=== PATIENT | female | born 1990 | race Caucasian/White ===

== ENCOUNTER 2016-12-04 16:00 | Inpatient (IN) | payer OTHER ==
[~2016-12-04] VITALS: Ht 168.9 cm; Wt 109.1 kg
[2016-12-04 16:51] VITALS: Ht 168.9 cm; Wt 109.1 kg
[2016-12-04] MEDS ORDERED: LIDOCAINE 1% (MPF) 30 ML INJ INJ PRN (17:00)
[2016-12-04] MEDS ORDERED: CARBOPROST 250 MCG INJ IM PRN (17:00)
[2016-12-04] MEDS ORDERED: IBUPROFEN 600 MG TAB PO PRN (17:00)
[2016-12-04] MEDS ORDERED: METHYLERGONOVINE 0.2 MG INJ IM PRN (17:00)
[2016-12-04] MEDS ORDERED: OXYTOCIN 30 UNITS/LR 500 ML IV PRN (17:00)
[2016-12-04] MEDS ORDERED: OXYTOCIN 30 UNITS/LR 500 ML IV SCH ×2 (17:00)
[2016-12-04] MEDS ORDERED: LACTATED RINGER'S 1,000 ML IV PRN (17:00)
[2016-12-04] MEDS ORDERED: BUTORPHANOL 2 MG INJ IV PRN (17:00)
[2016-12-04] MEDS ORDERED: MISOPROSTOL 200 MCG TAB PR PRN (17:00)
[2016-12-04] MEDS: LACTATED RINGER'S 1,000 ML IV SCH ×2 (17:16→23:39)
[2016-12-04 17:17] VITALS: BP 135/75; PULSE 94; RESP 18
[2016-12-04 17:34] LABS: ADD SCAN DIFF NO
[2016-12-04 17:36] LABS: BASOPHILS % 0.3 % (0.0-2.0); EOSINOPHILS # 0.1 10^3/ul (0.0-0.5); EOSINOPHILS % 0.9 % (0.0-7.0); HEMATOCRIT 40.3 % (37.0-47.0); LYMPHOCYTES # 1.6 10^3/ul (0.8-2.9); LYMPHOCYTES % 17.9 % (15.0-51.0); MEAN CORPUSCULAR HEMOGLOBIN 31.7 pg (29.0-33.0); MEAN CORPUSCULAR HGB CONC 34.7 g/dl (32.0-37.0); MEAN CORPUSCULAR VOLUME 91.4 fl (82.0-101.0); MONOCYTES % 10.7 % (0.0-11.0); NEUTROPHIL # 6.2 10^3/ul (1.6-7.5); NEUTROPHILS % 69.5 % (39.0-77.0); PLATELET COUNT 209 10^3/UL (140-415); RED BLOOD COUNT 4.41 10^6/ul (4.20-5.40); RED CELL DISTRIBUTION WIDTH 12.4 % (11.5-14.5); WHITE BLOOD COUNT 8.9 10^3/ul (4.8-10.8)
[2016-12-04 17:45] LABS: INR 0.85; PARTIAL THROMBOPLASTIN TIME 27.1 Sec (25.0-35.0); PROTIME 11.6 Sec (12.2-14.2); PT RATIO 0.9
[2016-12-04] MEDS ORDERED: DINOPROSTONE 10 MG VAG SUPP VAG ONE (18:00)
--- NOTE | 2016-12-04 18:06 | RADRPT ---
PROCEDURE: Limited OB ultrasound CLINICAL INDICATION: Unable to detect position TECHNIQUE: Sonographic evaluation to assess the placenta was performed. Transabdominal imaging of the gravid uterus was performed. COMPARISON: No prior exam is available for comparison. FINDINGS: There is a single live intrauterine with cardiac activity, with a heart rate o f 126 bpm. position is cephalic. The placenta is anterior and grade 1. There is no evidence of placental abruption or previa. IMPRESSION: Single live intrauterine gestation in cephalic presentation. RPTAT: [facility] .Juliocesar Brenner MD, Date Time Electronically viewed and signed by .Juliocesar Brenner MD, on 12/04/2016 18:06 .M/
--- NOTE | 2016-12-04 18:16 | HP ---
Date/Time of Note Date/Time of Note DATE: 12/04/16 TIME: 18:14 OB - History Hx of Present Free Text/Dictation pt here for induction for post dates pmh-non psh-none Care: Good Care Ultrasounds: Normal mid trimester US Obstetrical Complications: None Medical Complications: None Past Family/Social History * Past Medical, Surgical, Family and Obstetric Histories reviewed from chart. OB Admission Exam Vital Signs Vital Signs Vital Signs Date Time Temp Pulse Resp B/P Pulse Ox O2 Delivery O2 Flow Rate FiO2 12/04/16 17:17 98.5 94 18 135/75 Room Air Physical Exam HEENT: WNL Heart: Rhythm Normal Abdomen: WNL Extremities: Normal Reflexes: Normal Cervical Dilatation: None Effacement: 0% Station: -2 Membranes: Intact Accelerations: Accelerations Present Last 72 hours Lab Results CBC & BMP 12/04/16 17:10 OB Assessment/Plan Reason for admission: induction of labor Plan: Induction Other plan: cervidil induction GABRIEL WILDE MD December 04, 2016 18:15
[2016-12-05] MEDS: LACTATED RINGER'S 1,000 ML IV SCH ×2 (07:18→16:20)
[2016-12-05] MEDS ORDERED: DINOPROSTONE 10 MG VAG SUPP VAG ONE ×2 (09:45→23:00)
[2016-12-05] MEDS ORDERED: ACETAMINOPHEN 325 MG TAB PO PRN (10:40)
--- NOTE | 2016-12-05 20:55 | PN ---
Date/Time of Note Date/Time of Note DATE: 12/05/16 TIME: 20:45 OB Subjective Subjective Subjective post date ,on Cervidil induction currently on number 2 no cervical change ,will continue induction to achieve satisfactory response . EMMANUEL GUTHRIE MD December 05, 2016 20:55
[2016-12-06] MEDS: LACTATED RINGER'S 1,000 ML IV SCH ×3 (00:11→16:42)
[2016-12-06] MEDS: MISOPROSTOL 25 MCG CAPSULE PO SCH ×2 (16:02→20:13)
--- NOTE | 2016-12-06 17:17 | PN ---
Date/Time of Note Date/Time of Note DATE: 12/06/16 TIME: 17:12 OB Subjective Subjective Subjective Vital signs stable afebrile, currently patient on the third Cervidil no changes on cervical dilatation or effacement we will continue induction expecting cervical effacement and dilatation, within the next 12 hours, baby's condition satisfactory heart category 1 EMMANUEL GUTHRIE MD December 06, 2016 17:17
[2016-12-07] MEDS: MISOPROSTOL 25 MCG CAPSULE PO SCH ×2 (00:56→05:00)
[2016-12-07] MEDS: LACTATED RINGER'S 1,000 ML IV SCH ×4 (04:26→16:56)
[2016-12-07] MEDS ORDERED: ONDANSETRON 4 MG INJ IV STA (08:58)
[2016-12-07] MEDS ORDERED: MISOPROSTOL 200 MCG TAB PR PRN ×4 (09:00→17:00)
[2016-12-07] MEDS ORDERED: CLINDAMYCIN 900 MG/D5W (PMX) 50 ML IV SCH ×2 (09:00→17:00)
[2016-12-07] MEDS ORDERED: METHYLERGONOVINE 0.2 MG INJ IM PRN ×4 (09:00→17:00)
[2016-12-07] MEDS ORDERED: CITRIC ACID/SODIUM CITRATE 15 ML CUP PO ONE ×2 (09:00)
[2016-12-07] MEDS ORDERED: CARBOPROST 250 MCG INJ IM PRN ×4 (09:00→17:00)
[2016-12-07] MEDS ORDERED: OXYTOCIN 30 UNITS/LR 500 ML IV PRN ×4 (09:00→17:00)
[2016-12-07] MEDS ORDERED: METOCLOPRAMIDE 10 MG INJ ONE (09:23)
[2016-12-07] MEDS ORDERED: FENTAnyl 50 MCG/ML VIAL ONE (09:23)
[2016-12-07] MEDS ORDERED: morphine SULFATE/PF (10 MG/10 ML) INJ ONE (09:23)
[2016-12-07] MEDS ORDERED: KETOROLAC 30 MG INJ ONE (09:24)
[2016-12-07] MEDS ORDERED: OXYTOCIN 10 UNIT INJ ONE (09:24)
[2016-12-07] MEDS ORDERED: PHENYLephrine (100 MCG/ML) 5ML SYG ONE (09:24)
[2016-12-07 10:54] LABS: ADD SCAN DIFF NO
[2016-12-07 11:01] LABS: BASOPHILS % 0.4 % (0.0-2.0); EOSINOPHILS # 0.1 10^3/ul (0.0-0.5); EOSINOPHILS % 1.6 % (0.0-7.0); HEMATOCRIT 41.6 % (37.0-47.0); HEMOGLOBIN 14.3 g/dl (12.0-16.0); LYMPHOCYTES # 1.5 10^3/ul (0.8-2.9); LYMPHOCYTES % 18.4 % (15.0-51.0); MEAN CORPUSCULAR HEMOGLOBIN 31.7 pg (29.0-33.0); MEAN CORPUSCULAR HGB CONC 34.4 g/dl (32.0-37.0); MEAN CORPUSCULAR VOLUME 92.2 fl (82.0-101.0); MEAN PLATELET VOLUME 10.7 fl (7.4-10.4); MONOCYTE # 0.8 10^3/ul (0.3-0.9); MONOCYTES % 9.8 % (0.0-11.0); NEUTROPHIL # 5.8 10^3/ul (1.6-7.5); NEUTROPHILS % 69.1 % (39.0-77.0); PLATELET COUNT 168 10^3/UL (140-415); RED BLOOD COUNT 4.51 10^6/ul (4.20-5.40); RED CELL DISTRIBUTION WIDTH 12.7 % (11.5-14.5); WHITE BLOOD COUNT 8.4 10^3/ul (4.8-10.8)
[2016-12-07 11:20] LABS: INR 0.84; PROTIME 11.5 Sec (12.2-14.2); PT RATIO 0.9
[2016-12-07] MEDS ORDERED: DEXAMETHASONE 4 MG/ML 1 ML INJ ONE (13:28)
[2016-12-07] MEDS ORDERED: KETOROLAC 30 MG INJ IV PRN (15:30)
[2016-12-07] MEDS ORDERED: morphine 2 MG INJ IV PRN (15:30)
[2016-12-07] MEDS ORDERED: MIDAZOLAM 1 MG/ML 2 ML INJ IV PRN (15:30)
[2016-12-07] MEDS ORDERED: MEPERIDINE 25 MG INJ IV PRN (15:30)
[2016-12-07] MEDS ORDERED: hydrALAzine 20 MG INJ IV PRN (15:30)
[2016-12-07] MEDS ORDERED: HYDROmorphONE (0.2 MG/ML) 10ML SYG IV PRN ×3 (15:30)
[2016-12-07] MEDS ORDERED: EPHEDrine SULFATE 50 MG/5 ML SYG IV PRN (15:30)
[2016-12-07] MEDS ORDERED: LABETALOL HCL 20MG INJ IV PRN (15:30)
[2016-12-07] MEDS ORDERED: ZOLPIDEM 5 MG TAB PO PRN (15:30)
[2016-12-07] MEDS ORDERED: NALOXONE (0.4 MG/ML) INJ IV PRN (15:30)
[2016-12-07] MEDS ORDERED: DIPHENHYDRAMINE 50 MG INJ IV PRN ×2 (15:30)
[2016-12-07] MEDS ORDERED: HYDROmorphONE 1 MG/ML SYG IV PRN ×2 (15:30)
[2016-12-07] MEDS ORDERED: TRIMETHOBENZAMIDE 100 MG/ML VIAL IM PRN (15:30)
[2016-12-07] MEDS ORDERED: ONDANSETRON 4 MG INJ IV PRN ×2 (15:30)
[2016-12-07] MEDS ORDERED: FENTAnyl 50 MCG/ML VIAL IV PRN ×3 (15:30)
[2016-12-07] MEDS ORDERED: ACETAMINOPHEN/CODEINE #3 TAB PO PRN (17:00)
[2016-12-07] MEDS ORDERED: CEFAZOLIN 1 GM/50 ML (PMX) 50 ML IVPB SCH ×2 (17:00)
[2016-12-07] MEDS ORDERED: LANOLIN 7 GM TUBE TOP PRN (17:00)
[2016-12-07] MEDS ORDERED: OXYCODONE/ACETAMINOPHEN (5/325) TAB PO PRN ×2 (17:00)
[2016-12-07] MEDS ORDERED: OXYTOCIN 30 UNITS/LR 500 ML IV SCH (17:00)
--- NOTE | 2016-12-07 17:22 | OPR ---
DATE OF OPERATION: 12/07/2016 PREOPERATIVE DIAGNOSES: Intrauterine at 40 weeks. Three 3 days of induction and patient declined further trial of labor, requesting operative delivery by section. POSTOPERATIVE DIAGNOSES: Intrauterine at 40 weeks. Three 3 days of induction and patient declined further trial of labor, requesting operative delivery by section. OPERATION PERFORMED: Primary transverse low cervical section. SURGEON: Emmanuel Guthrie MD GARMENT MANUFACTURER: MCKENZIE KATE MD. ANESTHESIA: Spinal. ANESTHESIOLOGIST: Dr. Espinoza. FINDINGS: Live baby boy with the 8 and 9. Baby weighed 9 pounds 9 ounces, equal to 4325 gram s. DETAILS OF THE PROCEDURE: Under satisfactory spinal anesthesia, the patient was prepped and draped and placed in supine position, tilted to the left. Pfannenstiel incision was made, carried through the subcutaneous tissue. Bleeders brought under control with electrocautery. Fascia incised to the length of the incision. Rectus muscle divided in midline. Peritoneum exposed, entered through a t ransverse incision. Exploration of abdomen gravid uterus at term, normal appearing tubes and ovarie s. Bladder flap was developed. Transverse incision was made in the lower segment of the uterus. A mniotic sac ruptured. Clear amniotic fluid noted. Live baby boy was delivered from a transverse wa s delivered from occiput transverse position. After the delivery of the head, nasal oropharyngeal s uction was performed. Cord was clamped after resolved pulsation. Baby handed to the team for immediate attention. Placenta delivered manually intact. Uterine cavity cleaned with wet spong e and drainage established. Uterus closed in 2 layers using Monocryl #1 in continuous fashion. Per itoneal cavity irrigated with warm saline. Sponge, needle and instrument reported to be correct. A bdominal peritoneum closed with 2-0 chromic catgut continuously. Rectus muscle approximated with fe w interrupted 2-0 chromic catgut. Fascia closed with #1 PDS in a continuous fashion. Subcutaneous tissue approximated with interrupted 2-0 chromic catgut. Skin closed with rigoberto. ESTIMATED BLOOD LOSS: 700 mL. URINE BAG: Contained 200 mL of clear urine. Patient tolerated procedure well, transferred to recovery room in good condition. Dictated By: EMMANUEL GUTHRIE MD HF/NTS Conf#: [id number] DID#: [id number]
[2016-12-07] MEDS: OXYTOCIN 30 UNITS/LR 500 ML IV SCH ×4 (17:58→22:29)
[2016-12-07 18:00] VITALS: BP 123/74; PULSE 67; RESP 20
[2016-12-07] MEDS ORDERED: IBUPROFEN 600 MG TAB PO SCH (18:00)
[2016-12-07 18:50] LABS: INR 0.88; PROTIME 11.9 Sec (12.2-14.2); PT RATIO 0.9
[2016-12-07 18:51] LABS: PARTIAL THROMBOPLASTIN TIME 25.4 Sec (25.0-35.0)
[2016-12-07 20:00] VITALS: BP 127/80; PULSE 80; RESP 20
[2016-12-07] MEDS: SENNA/DOCUSATE NA (8.6MG/50MG) TAB PO SCH (21:30)
[2016-12-08 00:30] VITALS: BP 130/77; PULSE 93; RESP 20
[2016-12-08] MEDS: OXYTOCIN 30 UNITS/LR 500 ML IV SCH ×6 (00:56→08:56)
[2016-12-08] MEDS: LACTATED RINGER'S 1,000 ML IV SCH ×6 (00:56→15:07)
[2016-12-08 04:45] VITALS: BP 141/93; PULSE 95; RESP 20
[2016-12-08 08:09] LABS: ADD SCAN DIFF NO
[2016-12-08 08:10] VITALS: BP 120/69; PULSE 94; RESP 18
[2016-12-08 08:17] LABS: BASOPHILS % 0.2 % (0.0-2.0); EOSINOPHILS % 0.1 % (0.0-7.0); HEMATOCRIT 36.2 % (37.0-47.0); HEMOGLOBIN 12.3 g/dl (12.0-16.0); LYMPHOCYTES # 1.6 10^3/ul (0.8-2.9); LYMPHOCYTES % 10.6 % (15.0-51.0); MEAN CORPUSCULAR HEMOGLOBIN 31.2 pg (29.0-33.0); MEAN CORPUSCULAR VOLUME 91.9 fl (82.0-101.0); MEAN PLATELET VOLUME 10.7 fl (7.4-10.4); MONOCYTE # 1.3 10^3/ul (0.3-0.9); NEUTROPHIL # 11.8 10^3/ul (1.6-7.5); NEUTROPHILS % 79.4 % (39.0-77.0); PLATELET COUNT 180 10^3/UL (140-415); RED BLOOD COUNT 3.94 10^6/ul (4.20-5.40); RED CELL DISTRIBUTION WIDTH 12.8 % (11.5-14.5); WHITE BLOOD COUNT 14.8 10^3/ul (4.8-10.8)
[2016-12-08] MEDS: SENNA/DOCUSATE NA (8.6MG/50MG) TAB PO SCH ×2 (09:00→21:00)
[2016-12-08] MEDS ORDERED: CLINDAMYCIN 900 MG/D5W (PMX) 50 ML IVPB SCH (09:00)
[2016-12-08 12:00] VITALS: BP 119/66; PULSE 85; RESP 18
--- NOTE | 2016-12-08 12:16 | PN ---
Date/Time of Note Date/Time of Note DATE: 12/08/16 TIME: 12:14 OB Subjective Subjective Subjective Post day 1 Afebrile vital signs are stable abdomen soft mild distention bowel sounds present patient able to pass flatus lochia moderate extremities no ambulation encouraged Laboratory Tests Test 12/07/16 18:26 12/08/16 07:38 Prothrombin Time 11.9Sec Prothrombin Time Ratio 0.9 INR International Normalized Ratio 0.88 Activated Partial Thromboplast Time 25.4Sec White Blood Count 14.810^3/ul Red Blood Count 3.9410^6/ul Hemoglobin 12.3g/dl Hematocrit 36.2% Mean Corpuscular Volume 91.9fl Mean Corpuscular Hemoglobin 31.2pg Mean Corpuscular Hemoglobin Concent 34.0g/dl Red Cell Distribution Width 12.8% Platelet Count 59818^3/UL Mean Platelet Volume 10.7fl Neutrophils % 79.4% Lymphocytes % 10.6% Monocytes % 9.0% Eosinophils % 0.1% Basophils % 0.2% Nucleated Red Blood Cells % 0.0/100WBC Neutrophils # 11.810^3/ul Lymphocytes # 1.610^3/ul Monocytes # 1.310^3/ul Eosinophils # 0.010^3/ul Basophils # 0.010^3/ul Nucleated Red Blood Cells # 0.010^3/ul Current Medications Medications (Trade) Dose Ordered Sig/Bita Route PRN Reason Start Time Stop Time Status Last Admin Dose Admin Lactated Ringer's (Lr) 1,000 ml @ 125 mls/hr Q8H IV 12/04/16 16:46 12/07/16 17:01 DC 12/07/16 09:04 Butorphanol Tartrate (Stadol) 2 mg Q2H PRN IV PAIN 12/04/16 17:00 12/07/16 17:01 DC Lidocaine 30 ml 30 ml ONCE PRN INJ EPISIOTOMY/TEARING 12/04/16 17:00 12/07/16 17:02 DC Oxytocin/Lactated Ringer's 500 ml @ 125 mls/hr ONCE -MAY REPEAT X1 IV 12/04/16 17:00 12/07/16 17:01 DC 12/07/16 16:46 Oxytocin/Lactated Ringer's 500 ml @ 125 mls/hr ONCE IV 12/04/16 17:00 12/07/16 17:01 DC Ibuprofen 600 mg 600 mg ONCE PRN PO Mild Pain (Pain Score 1-3) 12/04/16 17:00 12/04/16 17:01 DC Lactated Ringer's 1,000 ml @ 2,000 mls/hr Q30M PRN IV PRE-EPIDURAL BOLUS 12/04/16 17:00 12/07/16 17:01 DC Oxytocin/Lactated Ringer's 500 ml @ 0 mls/hr ONCE PRN IV For Hemorrhage Management 12/04/16 17:00 12/07/16 17:01 DC Methylergonovine Maleate (Methergine) 0.2 mg ONCE PRN IM VAGINAL BLEEDING 12/04/16 17:00 12/07/16 17:02 DC Carboprost Tromethamine (Hemabate) 250 mcg ONCE PRN IM VAGINAL BLEEDING 12/04/16 17:00 12/07/16 17:01 DC Misoprostol (Cytotec) 1,000 mcg ONCE PRN SD VAGINAL BLEEDING 12/04/16 17:00 12/07/16 17:02 DC Dinoprostone (Cervidil Vaginal Supp) 10 mg ONCE ONCE VAG 12/04/16 18:00 12/04/16 18:01 DC 12/04/16 18:24 Dinoprostone (Cervidil Vaginal Supp) 10 mg ONCE ONCE VAG 12/05/16 09:45 12/05/16 09:46 DC 12/05/16 10:06 Acetaminophen (Tylenol Tab) 650 mg Q4H PRN PO PAIN AND OR ELEVATED TEMP 12/05/16 10:40 12/07/16 17:01 DC 12/05/16 10:54 Dinoprostone (Cervidil Vaginal Supp) 10 mg ONCE ONCE VAG 12/05/16 23:00 12/05/16 23:01 DC 12/06/16 01:10 Misoprostol 50 mcg 50 mcg Q4 PO 12/06/16 15:15 12/07/16 17:01 DC 12/06/16 20:13 Oxytocin/Lactated Ringer's 500 ml @ 0 mls/hr ONCE PRN IV For Hemorrhage Management 12/07/16 09:00 12/07/16 17:01 DC Methylergonovine Maleate (Methergine) 0.2 mg ONCE PRN IM VAGINAL BLEEDING 12/07/16 09:00 12/07/16 17:02 DC Carboprost Tromethamine (Hemabate) 250 mcg ONCE PRN IM VAGINAL BLEEDING 12/07/16 09:00 12/07/16 17:02 DC Misoprostol 1000 mcg 1,000 mcg ONCE PRN SD VAGINAL BLEEDING 12/07/16 09:00 12/07/16 17:02 DC Clindamycin HCl/ Dextrose (Cleocin 900 Mg/ D5W (Pmx)) 50 ml @ 50 mls/hr ONCE IV 12/07/16 09:00 12/07/16 18:49 Citric Acid/ Sodium Citrate (Bicitra) 15 ml ONCE ONCE PO 12/07/16 09:00 12/07/16 09:02 DC 12/07/16 12:30 Citric Acid/ Sodium Citrate (Bicitra) 15 ml ONCE ONCE PO 12/07/16 09:00 12/07/16 09:02 DC 12/07/16 12:31 Ondansetron HCl (Zofran Inj) 4 mg ONCE STAT IV 12/07/16 08:58 12/07/16 09:02 DC 12/07/16 12:30 Morphine Sulfate (Duramorph) 10 mg STK-MED ONCE .ROUTE 12/07/16 09:23 12/07/16 09:24 DC Fentanyl (Sublimaze) 100 mcg STK-MED ONCE .ROUTE 12/07/16 09:23 12/07/16 09:24 DC Metoclopramide HCl (Reglan) 10 mg STK-MED ONCE .ROUTE 12/07/16 09:23 12/07/16 09:24 DC Oxytocin (Oxytocin) 10 units STK-MED ONCE .ROUTE 12/07/16 09:24 12/07/16 09:25 DC Phenylephrine HCl (Paolo-Synephrine Inj Syg) 500 mcg STK-MED ONCE .ROUTE 12/07/16 09:24 12/07/16 09:25 DC Ketorolac Tromethamine (Toradol) 30 mg STK-MED ONCE .ROUTE 12/07/16 09:24 12/07/16 09:25 DC Dexamethasone (Decadron) 4 mg STK-MED ONCE .ROUTE 12/07/16 13:28 12/07/16 13:29 DC Hydromorphone HCl (Dilaudid (Rec)) 0.2 mg PACU ORDER PRN IV MILD PAIN LEVEL 1-3 12/07/16 15:30 12/07/16 17:01 DC Hydromorphone HCl (Dilaudid (Rec)) 0.4 mg PACU ORDER PRN IV MODERATE PAIN LEVEL 4-6 12/07/16 15:30 12/07/16 17:01 DC Hydromorphone HCl (Dilaudid (Rec)) 0.6 mg PACU ORDER PRN IV SEVERE PAIN LEVEL 7-10 12/07/16 15:30 12/07/16 17:01 DC Fentanyl (Sublimaze) 25 mcg PACU ORDER PRN IV MILD PAIN LEVEL 1-3 12/07/16 15:30 12/07/16 17:01 DC Fentanyl (Sublimaze) 50 mcg PACU ODER PRN IV MODERATE PAIN LEVEL 4-6 12/07/16 15:30 12/07/16 17:01 DC Fentanyl (Sublimaze) 75 mcg PACU ORDER PRN IV SEVERE PAIN LEVEL 7-10 12/07/16 15:30 12/07/16 17:01 DC Ondansetron HCl (Zofran Inj) 4 mg PACU ORDER PRN IV NAUSEA AND/OR VOMITING 12/07/16 15:30 12/07/16 17:01 DC Trimethobenzamide HCl (Tigan) 200 mg PACU ORDER PRN IM NAUSEA AND/OR VOMITING 12/07/16 15:30 12/07/16 17:01 DC Labetalol HCl (Labetalol) 5 mg PACU ORDER PRN IV HIGH BLOOD PRESSURE 12/07/16 15:30 12/07/16 17:01 DC Hydralazine HCl (Apresoline) 5 mg PACU ORDER PRN IV HIGH BLOOD PRESSURE 12/07/16 15:30 12/07/16 17:01 DC Ephedrine Sulfate 5 mg PACU ORDER PRN IV MAP LESS THAN 60 12/07/16 15:30 12/07/16 17:01 DC Meperidine HCl (Demerol) 25 mg PACU ORDER PRN IV POST-OP RIGORS 12/07/16 15:30 12/07/16 17:01 DC Diphenhydramine HCl (Benadryl) 25 mg PACU ORDER PRN IV PRURITUS 12/07/16 15:30 12/07/16 22:00 DC Midazolam HCl (Versed) 0.5 mg PACU ORDER PRN IV ANXIETY 12/07/16 15:30 12/07/16 17:01 DC Naloxone HCl (Narcan) 0.1 mg Q2M PRN IV FOR RESP RATE 8 OR LESS 12/07/16 15:30 12/08/16 15:29 Ketorolac Tromethamine (Toradol) 30 mg Q6H PRN IV PAIN 12/07/16 15:30 12/08/16 15:29 12/08/16 09:59 Morphine Sulfate (morphine) 3 mg Q2H PRN IV BREAKTHROUGH PAIN 12/07/16 15:30 12/08/16 15:29 Hydromorphone HCl (Dilaudid) 0.2 mg Q3H PRN IV PAIN LEVEL 1-5 12/07/16 15:30 12/08/16 15:29 Hydromorphone HCl (Dilaudid) 0.4 mg Q3H PRN IV PAIN LEVEL 6-10 12/07/16 15:30 12/08/16 15:29 Diphenhydramine HCl (Benadryl) 25 mg Q6H PRN IV ITCHING 12/07/16 15:30 12/08/16 15:29 Ondansetron HCl (Zofran Inj) 4 mg Q6H PRN IV NAUSEA AND/OR VOMITING 12/07/16 15:30 12/08/16 15:29 Zolpidem Tartrate (Ambien) 5 mg HS MAY REPEAT X 1 PRN PO INSOMNIA 12/07/16 15:30 12/08/16 15:29 Miscellaneous Information (* Miscellaneous Pharmacy Order) Duramorph: 0.2 mg Spi... GIVEN XX 12/07/16 15:30 Acetaminophen/ Codeine Phosphate (Tylenol No.3) 1 tab Q4H PRN PO PAIN LEVEL 4-6 12/07/16 17:00 Acetaminophen/ Codeine Phosphate (Tylenol No.3) 2 tab Q4H PRN PO PAIN LEVEL 7-10 12/07/16 17:00 Oxycodone/ Acetaminophen (Percocet (5/ 325)) 1 tab Q4H PRN PO PAIN LEVEL 4-6 12/07/16 17:00 Oxycodone/ Acetaminophen (Percocet (5/ 325)) 2 tab Q4H PRN PO PAIN LEVEL 7-10 12/07/16 17:00 Ibuprofen (Motrin) 600 mg Q6 PO 12/07/16 18:00 UNV Simethicone (Mylicon) 160 mg Q8H PRN PO DISTENSION/GAS/BLOATING 12/07/16 17:00 Senna/Docusate Sodium (Senokot-S) 1 tab BID PO 12/07/16 21:00 Lanolin (Zge-Z-Yjvtgw) 1 applic BEDSIDE MEDICATION PRN TOP BEDSIDE FOR PARUL TO NIPPLES 12/07/16 17:00 12/08/16 09:58 Diphtheria/ Tetanus/Acell Pertussis 0.5 ml 0.5 ml ONCE ONCE IM* 12/10/16 09:00 12/10/16 09:01 Oxytocin/Lactated Ringer's 500 ml @ 0 mls/hr ONCE PRN IV For Hemorrhage Management 12/07/16 17:00 Methylergonovine Maleate (Methergine) 0.2 mg ONCE PRN IM VAGINAL BLEEDING 12/07/16 17:00 Carboprost Tromethamine (Hemabate) 250 mcg ONCE PRN IM VAGINAL BLEEDING 12/07/16 17:00 Misoprostol 1000 mcg 1,000 mcg ONCE PRN SD VAGINAL BLEEDING 12/07/16 17:00 Cefazolin Sodium 50 ml @ 100 mls/hr ONCE IVPB 12/07/16 17:00 12/08/16 07:41 DC Oxytocin/Lactated Ringer's 500 ml @ 125 mls/hr Q4H IV 12/07/16 16:56 12/07/16 22:29 Lactated Ringer's 1,000 ml @ 125 mls/hr Q8H IV 12/07/16 16:56 12/08/16 10:50 Clindamycin HCl/ Dextrose 50 ml @ 50 mls/hr ONCE IV 12/07/16 17:00 Oxytocin/Lactated Ringer's 500 ml @ 125 mls/hr ONCE IV 12/07/16 17:00 Oxytocin/Lactated Ringer's 500 ml @ 0 mls/hr ONCE PRN IV For Hemorrhage Management 12/07/16 17:00 Methylergonovine Maleate (Methergine) 0.2 mg ONCE PRN IM VAGINAL BLEEDING 12/07/16 17:00 Carboprost Tromethamine (Hemabate) 250 mcg ONCE PRN IM VAGINAL BLEEDING 12/07/16 17:00 Misoprostol 1000 mcg 1,000 mcg ONCE PRN SD VAGINAL BLEEDING 12/07/16 17:00 Lactated Ringer's 1,000 ml @ 125 mls/hr Q8H IV 12/07/16 16:56 Oxytocin/Lactated Ringer's 500 ml @ 0 mls/hr ONCE PRN IV For Hemorrhage Management 12/07/16 17:00 Methylergonovine Maleate (Methergine) 0.2 mg ONCE PRN IM VAGINAL BLEEDING 12/07/16 17:00 Carboprost Tromethamine (Hemabate) 250 mcg ONCE PRN IM VAGINAL BLEEDING 12/07/16 17:00 Misoprostol 1000 mcg 1,000 mcg ONCE PRN SD VAGINAL BLEEDING 12/07/16 17:00 Cefazolin Sodium 50 ml @ 100 mls/hr ONCE IVPB 12/07/16 17:00 12/07/16 17:29 UNV Oxytocin/Lactated Ringer's 500 ml @ 125 mls/hr Q4H IV 12/07/16 16:56 Clindamycin HCl/ Dextrose (Cleocin 900 Mg/ D5W (Pmx)) 50 ml @ 50 mls/hr ONCE IVPB 12/08/16 09:00 12/08/16 09:59 EMMANUEL SANCHEZ MD December 08, 2016 12:16
[2016-12-08 16:00] VITALS: BP 122/60; PULSE 84; RESP 19
[2016-12-08 20:00] VITALS: BP 110/76; PULSE 98; RESP 20
[2016-12-09] MEDS: LACTATED RINGER'S 1,000 ML IV SCH ×3 (00:56→16:56)
[2016-12-09] MEDS: ACETAMINOPHEN/CODEINE #3 TAB PO PRN ×3 (03:56→17:53)
[2016-12-09 04:30] VITALS: BP 117/54; PULSE 81; RESP 20
[2016-12-09 08:00] VITALS: BP 117/57; PULSE 82; RESP 19
[2016-12-09] MEDS: SENNA/DOCUSATE NA (8.6MG/50MG) TAB PO SCH ×2 (09:00→20:54)
[2016-12-09 16:08] VITALS: BP 116/65; PULSE 96; RESP 18
[2016-12-09] MEDS ORDERED: NA PHOSPHATE/BIPHOS 133 ML ENEMA PR ONE (17:30)
--- NOTE | 2016-12-09 17:31 | PN ---
Date/Time of Note Date/Time of Note DATE: 12/09/16 TIME: 17:30 OB Subjective Subjective Subjective Post day 2 Afebrile abdomen soft bowel sounds. Incision dry lochia moderate extremity normal no bowel movement enema recommended EMMANUEL GUTHRIE MD December 09, 2016 17:31
[2016-12-09 20:15] VITALS: BP 117/58; PULSE 100; RESP 18
[2016-12-09] MEDS: NEOMYC/POLYMYX/BACIT 30 GM OINT TOP SCH ×2 (21:03→21:20)
[2016-12-10] MEDS: ACETAMINOPHEN/CODEINE #3 TAB PO PRN ×3 (01:39→14:17)
[2016-12-10 03:58] VITALS: BP 130/73; PULSE 102; RESP 18
[2016-12-10] MEDS ORDERED: MEASLES,MUMPS,RUBELLA VACCINE INJ SC* ONE (09:00)
[2016-12-10] MEDS: SENNA/DOCUSATE NA (8.6MG/50MG) TAB PO SCH (09:00)
[2016-12-10] MEDS ORDERED: DIPHTH/TET/ACEL PERTUSS (ADULT) 0.5 ML VIAL IM* ONE (09:00)
[2016-12-10 09:05] VITALS: BP 125/77; PULSE 110; RESP 20
[2016-12-10] MEDS: NEOMYC/POLYMYX/BACIT 30 GM OINT TOP SCH ×2 (09:25→09:26)
[2016-12-10] MEDS ORDERED: NA PHOSPHATE/BIPHOS 133 ML ENEMA PR SCH (09:30)
--- NOTE | 2016-12-10 13:48 | PD.PPDC ---
WIRE WORKER Discharge Instruction Condition Patient Condition: Good Diet Diet: Resume Regular Diet Activity/Restrictions Activity: Bedrest May be up to bathroom May be up for meals May Shower Restrictions: No Exercising No Lifting No Driving Minimize Walking Minimize Stair-climbing No Sexual Activity Nothing in the Vagina No [place] No Tampons, douche Wound/Drain Care Instructions Wound/Drain Care Instructions: Remove Steri Strips in 2 weeks Wash with soap and water Keep clean and dry Follow-up Follow-up with Physician: 3, Day/Days Return to clinic for [facility] MGR Instructions: Fever greater than 101 Chills Worsening abdominal pain Excessive Vaginal Bleeding OB Instructions: Breast Tenderness Depression Surgical Instructions: Incisional Drainage Incisional Redness JEIMY ROWAN MD December 10, 2016 13:48
--- NOTE | 2016-12-10 13:50 | DS ---
Date/Time of Note Date/Time of Note DATE: 12/10/16 TIME: 13:48 Obstetrical Discharge Record Final Diagnosis Final Diagnosis: Term delivered Section Section: Primary Primary Indication Failed induction. Complications Augmentation: Yes Induction: Yes Condition on Discharge Physical Assessment Last Vitals: T=98.3 BP 130/73 Voiding: Yes Bowel Movement: No Breast: Filling Fundus: Firm Abdomen and Incision: Clean dry and intact with rigoberto present and a very large pannus. Calf Tenderness: No Patient Condition: Good JEIMY ROWAN MD December 10, 2016 13:50
== END 2016-12-10 15:50 | disposition home or self-care (01) | DRG 766 ==
LOC: L-D 16:30 → PP1 12-07 17:15
PROVIDERS: ADMIT Obstetrics & Gynecology; ATTEND Obstetrics & Gynecology
PROC: 3E0P7GC Introduction of Other Therapeutic Substance into Female Reproductive, Via Natural or Artificial Opening (ICD-10-PCS; 2016-12-05)
PROC: 10D00Z1 Extraction of Products of Conception, Low, Open Approach (ICD-10-PCS; principal; 2016-12-07 14:00)
DX: O48.0 Post-term pregnancy (principal); E66.9 Obesity, unspecified; O99.214 Obesity complicating childbirth; Z68.38 Body mass index [BMI] 38.0-38.9, adult; Z3A.40 40 weeks gestation of pregnancy; Z37.0 Single live birth; Z87.891 Personal history of nicotine dependence
CPT/HCPCS: 76815; 85025; 85610; 85730; 86592; 86850; 86900; 86901; 87340; 90715; 99464; J1100; J1885; J2274; J2370; J2405; J2590; J2765; J3010; J7120

== ENCOUNTER 2016-12-14 18:08 | Inpatient (IN) | payer OTHER ==
[~2016-12-14] VITALS: Ht 170.2 cm; Wt 104.5 kg
[2016-12-14] MEDS ORDERED: SOD CHLORIDE 0.9% 1,000 ML IV STA (19:27)
[2016-12-14] MEDS ORDERED: CEFAZOLIN 1 GM/50 ML (PMX) 50 ML IVPB SCH (19:30)
--- NOTE | 2016-12-14 19:44 | ERA ---
ER Documentation Chief Complaint Date/Time DATE: 12/14/16 TIME: 19:[address] Chief [address] BY DR GUTHRIE FOR FEVER , DISCHARGE AT INCISION SITE , C SEC 11/07 HPI 26-year-old female status post 12/07/2016 resents the ED complaining of a several day history of intermittent fevers up to 101 with redness and purulent discharge from the wound. Denies abdominal pain, nausea, vomiting, diarrhea or constipation. Mild vaginal bleeding but no discharge or pelvic pain. Mild dysuria but no polyuria, hematuria or flank pain. No chest pain or palpitations. No shortness of breath or cough. Denies headache or neck pain. No leg pain or swelling. ROS All systems reviewed and are negative except as per history of present illness. Medications Home Meds No Active Prescriptions or Reported Meds Allergies Allergies: Coded Allergies: Penicillins (Verified Allergy, Unknown, 12/04/16) RASH ibuprofen (Verified Allergy, Unknown, 12/04/16) Gastritis PMhx/Soc Reviewed in chart. As per HPI. Medical and Surgical Hx: pt denies Medical Hx History of Surgery: Yes (csection) Anesthesia Reaction: No Hx Neurological Disorder: No Hx Respiratory Disorders: No Hx Cardiac Disorders: No Hx Psychiatric Problems: No Hx Miscellaneous Medical Probl: No Hx Alcohol Use: No Hx Substance Use: No Hx Tobacco Use: No FmHx Not relevant to presenting complaint Physical Exam Vitals Vital Signs Date Time Temp Pulse Resp B/P Pulse Ox O2 Delivery O2 Flow Rate FiO2 12/14/16 18:09 99.2 106 18 121/57 98 Physical Exam Const: Alert, mild distress. Head: Atraumatic Eyes: Normal Conjunctiva ENT: Normal External Ears, Nose and Mouth. Neck: Full range of motion..~ No meningismus. Resp: Clear to auscultation bilaterally Cardio: Regular rate and rhythm, no murmurs Abd: Soft, non tender, obese, nondistended. Pfannenstiel incision with diffuse surrounding erythema, tenderness and moderate purulent drainage from the medial portion of the wound. : Deferred Skin: No petechiae or rashes Back: No midline or flank tenderness Ext: No cyanosis, or edema. No calf swelling or tenderness Neur: Awake and alert Psych: Normal Mood and Affect Results 24 hrs Current Medications Medications (Trade) Dose Ordered Sig/Bita Route PRN Reason Start Time Stop Time Status Last Admin Dose Admin Sodium Chloride 1,000 ml @ 1,000 mls/hr Q1H STAT IV 12/14/16 19:27 12/14/16 20:26 Cefazolin Sodium (Ancef 1 Gm/50 ml (Pmx)) 50 ml @ 100 mls/hr ONCE IVPB 12/14/16 19:30 12/14/16 19:59 Procedures/MDM DOCUMENTS REVIEWED: ED nurse prior records MEDICAL DECISION MAKIN-year-old female status post 2016 resents the ED complaining of a several day history of intermittent fevers up to 101 with redness and purulent discharge from the wound. Patient presents with postoperative wound infection and fever. Doubt endometritis. Abdominal exam is benign without rebound, guarding or other signs of peritonitis. Antibiotics initiated pending cultures. Patient be admitted to [facility] for further evaluation and management. Counseled patient regarding diagnosis, diagnostic results and plan for admission. CALLS/CONSULTS: Time 19:30, Dr. Guthrie, Recommends admission to [facility]. PATIENT CARE TRANSITIONED: Time: 19:40, Dr. Guthrie. Departure Diagnosis: Primary Impression: Postoperative wound infection Qualified Code: T81.4XXA - Postoperative wound infection, initial encounter Additional Impression: Status post section Condition: Serious OK NINO MD December 14, 2016 19:44
[2016-12-14 19:57] LABS: ADD SCAN DIFF NO
[2016-12-14] MEDS ORDERED: ONDANSETRON 4 MG INJ IV PRN ×2 (20:00→22:00)
[2016-12-14] MEDS ORDERED: ACETAMINOPHEN 325 MG TAB PO PRN ×2 (20:00→22:00)
[2016-12-14 20:02] LABS: ADD UMIC YES; URINE BILIRUBIN (Dip) NEGATIVE (NEGATIVE); URINE BLOOD (Dip) 3+ (NEGATIVE); URINE COLOR LT. YELLOW (YELLOW); URINE GLUCOSE (Dip) NEGATIVE (NEGATIVE); URINE KETONES (Dip) NEGATIVE (NEGATIVE); URINE LEUKOCYTE ESTERASE (Dip) 2+ (NEGATIVE); URINE NITRITE (Dip) NEGATIVE (NEGATIVE); URINE TOTAL PROTEIN (Dip) TRACE (NEGATIVE); URINE UROBILINOGEN (Dip) 0.2 E.U./dL (0.1-1.0)
[2016-12-14 20:02] LABS: BASOPHILS % 0.4 % (0.0-2.0); EOSINOPHILS # 0.1 10^3/ul (0.0-0.5); HEMATOCRIT 36.7 % (37.0-47.0); HEMOGLOBIN 12.6 g/dl (12.0-16.0); LYMPHOCYTES # 0.8 10^3/ul (0.8-2.9); LYMPHOCYTES % 10.6 % (15.0-51.0); MEAN CORPUSCULAR HEMOGLOBIN 31.8 pg (29.0-33.0); MEAN CORPUSCULAR HGB CONC 34.3 g/dl (32.0-37.0); MEAN CORPUSCULAR VOLUME 92.7 fl (82.0-101.0); MEAN PLATELET VOLUME 9.1 fl (7.4-10.4); MONOCYTE # 0.5 10^3/ul (0.3-0.9); MONOCYTES % 7.4 % (0.0-11.0); NEUTROPHIL # 5.7 10^3/ul (1.6-7.5); NEUTROPHILS % 78.8 % (39.0-77.0); PLATELET COUNT 321 10^3/UL (140-415); RED BLOOD COUNT 3.96 10^6/ul (4.20-5.40); RED CELL DISTRIBUTION WIDTH 12.1 % (11.5-14.5); WHITE BLOOD COUNT 7.3 10^3/ul (4.8-10.8)
[2016-12-14 20:19] LABS: ALBUMIN 4.1 g/dl (3.3-4.9); ALBUMIN/GLOBULIN RATIO 1.24; BILIRUBIN,INDIRECT 0.5 mg/dl (0-1.1); BILIRUBIN,TOTAL 0.5 mg/dl (0.2-1.3); CALCIUM 8.8 mg/dl (8.4-10.2); CREATININE 0.59 mg/dl (0.44-1.00); POTASSIUM 3.5 mmol/L (3.5-5.1); TOTAL PROTEIN 7.4 g/dl (6.1-8.1)
[2016-12-14 20:23] LABS: BACTERIA,URINE MANY; SQUAMOUS EPITHELIAL CELL,UR FEW
[2016-12-14 21:44] VITALS: BP 118/58; RESP 18
[2016-12-14] MEDS: LACTATED RINGER'S 1,000 ML IV SCH (22:19)
[2016-12-14 22:35] VITALS: Ht 170.2 cm; Wt 104.5 kg
[2016-12-15] MEDS ORDERED: CEFAZOLIN 2 GM/50 ML (PMX) 50 ML IVPB SCH
--- NOTE | 2016-12-15 00:22 | HP ---
Date/Time of Note Date/Time of Note DATE: 12/14/16 TIME: 23:50 Assessment/Plan VTE Prophylaxis VTE Prophylaxis Intervention: ambulation Lines/Catheters IV Catheter Type (from Nrs): Peripheral IV Assessment/Plan Chief Complaint/Hosp Course POD #7, post section due to FTP Fever, wound drainage with evidence of wound cellulitis On Ancef Afebrile, no leukocytosis Problems: Assessment/Plan Wound culture obtained with gram stain and sensitivity in ED. follow up with results Obtain records from [facility] Urine culture to be sent with sensitivity IV abx, clindamycin and Gentamycin Expectant management Consider removing of the rigoberto from the infected side to assist for drainage tomrorrow. HPI/ROS Admit Date/Time Admit Date/Time December 14, 2016 at 19:44 Hx of Present Illness Patient was admitted by [facility] due to wound infection at 1 week post section. 26 years old s/p section due to FTP at 40 weeks and 4 days about one week ago, presented after she was seen at [facility] and was admitted due to fever and wound drainage started about 3 days ago. Patient's symptoms started with fever 101 and 101 about 3 days ago, Started to have purulent discharge from the right side of the wound. She states that she was admitted for 2 days at [facility] and was treated with 2 different IV antibiotics. Patient then decided to sign AMA and presented to [facility] in ED to be seen and complete her work up for wound infection with her primary Surgo[place] Dr. Ochoa. Patient currently reports drainage has been only from the right 1/3 side of the incision. Denies any abdominal pain. Started by ED on Ancef 1 grams every 4 hours. Records from [facility] unavailable. She is not currently breast feeding. Had some trouble in milk production and stopped breast feeding. Patient denies any complication during her course or any medical problems ROS Constitutional: no complaints Eyes: no complaints ENT: no complaints Respiratory: no complaints Cardiovascular: no complaints Gastrointestinal: other (drainage from the cersarean section inclsion, erythema ) Genitourinary: bleeding, other (Post Leukia ) Musculoskeletal: no complaints Skin: no complaints Neurologic: no complaints Endocrine: no complaints Lymphatic: no complaints PMH/Family/Social Past Medical History Medical History: no pertinent history Past Surgical History S/p section due to FTP Family History Significant Family History: no pertinent family hx Social History Alcohol Use: none Smoking Status: Former smoker Drug Use: none Exam/Review of Systems Vital Signs Vitals Vital Signs Date Time Temp Pulse Resp B/P Pulse Ox O2 Delivery O2 Flow Rate FiO2 12/14/16 21:44 98.3 84 18 118/58 98 Exam Constitutional: other (obese) Psych: no complaints Head: normocephalic Eyes: nl conjunctiva ENMT: nl external ears & nose Respiratory: clear to auscultation, normal air movement Cardiovascular: nl pulses, regular rate and rhythm Gastrointestinal: non-tender (there is Pfanenstiel incision related to recent section, drainage from the right side of the incision at 1/3 of the right corner, erythema arround the wound, Blenching. Drainage is purulent, Minimal tenderness in the area of the wound infection. ), soft Musculoskeletal: nl extremities to inspection Neurological: TRAVEL PT II-XII intact, nl mental status Skin: nl turgor Labs Result Diagram: 12/14/16194912/14/161949 Medications Medications Current Medications Cefazolin Sodium/ Dextrose (Ancef 2 Gm/50 ml (Pmx)) 50 ml @ 100 mls/hr Q6 IVPB Last administered on 12/14/16 23:04; Admin Dose 100 MLS/HR; Start 12/15/16 at 00:00 Ondansetron HCl (Zofran Inj) 4 mg Q6H PRN IV NAUSEA AND/OR VOMITING; Start at 22:00 Acetaminophen 650 mg 650 mg Q4H PRN PO PAIN AND OR ELEVATED TEMP; Start at 22:00 Lactated Ringer's (Lr) 1,000 ml @ 125 mls/hr Q8H IV Last administered on 22:19; Admin Dose 125 MLS/HR; Start 12/14/16 at 22:00 MCKENZIE KATE MD Dec 15, 2016 00:01
[2016-12-15] MEDS ORDERED: CLINDAMYCIN 900 MG INJ IV ONE (00:30)
[2016-12-15] MEDS ORDERED: CLINDAMYCIN 900 MG/D5W (PMX) 50 ML IVPB SCH (01:00)
[2016-12-15] MEDS ORDERED: GENTAMICIN 80 MG/NS (PMX) 50 ML IVPB SCH (01:00)
[2016-12-15 05:39] LABS: ADD SCAN DIFF NO
[2016-12-15 05:48] LABS: BASOPHILS % 0.3 % (0.0-2.0); EOSINOPHILS # 0.3 10^3/ul (0.0-0.5); EOSINOPHILS % 4.4 % (0.0-7.0); HEMATOCRIT 33.3 % (37.0-47.0); HEMOGLOBIN 11.2 g/dl (12.0-16.0); LYMPHOCYTES # 1.2 10^3/ul (0.8-2.9); LYMPHOCYTES % 21.6 % (15.0-51.0); MEAN CORPUSCULAR HGB CONC 33.6 g/dl (32.0-37.0); MEAN CORPUSCULAR VOLUME 92.2 fl (82.0-101.0); MEAN PLATELET VOLUME 9.3 fl (7.4-10.4); MONOCYTE # 0.7 10^3/ul (0.3-0.9); MONOCYTES % 12.5 % (0.0-11.0); NEUTROPHIL # 3.4 10^3/ul (1.6-7.5); NEUTROPHILS % 58.6 % (39.0-77.0); PLATELET COUNT 279 10^3/UL (140-415); RED BLOOD COUNT 3.61 10^6/ul (4.20-5.40); RED CELL DISTRIBUTION WIDTH 12.3 % (11.5-14.5); WHITE BLOOD COUNT 5.7 10^3/ul (4.8-10.8)
[2016-12-15] MEDS: LACTATED RINGER'S 1,000 ML IV SCH ×4 (06:00→21:40)
[2016-12-15 06:55] VITALS: BP 116/55; RESP 18
--- NOTE | 2016-12-15 10:46 | QN ---
Documentation Comment Afebrile vital signs are stable abdomen is soft redness and cellulitis on both sides of the incision has improved to the normal color and condition , approximately 1-1/2 inches on the right coronary of the incision still open, very minimal drainage which irrigated with hydrogen peroxide and Betadine and packed with half inch iodoform packing So far no growth on wound culture urine culture report not available Laboratory Tests Test 12/14/16 19:43 12/14/16 19:50 12/15/16 05:09 Urine Color LT. YELLOW Urine Clarity SLIGHTLY CLOUDY Urine pH 6.0 Urine Specific [place] 1.020 Urine Ketones NEGATIVE Urine Nitrite NEGATIVE Urine Bilirubin NEGATIVE Urine Urobilinogen 0.2 E.U./dL Urine Leukocyte Esterase 2+ Urine Microscopic RBC 5-10/HPF Urine Microscopic WBC 10-25/HPF Urine Squamous Epithelial Cells FEW Urine Bacteria MANY Urine Hemoglobin 3+ Urine Glucose NEGATIVE% Urine Total Protein TRACE White Blood Count 7.310^3/ul 5.710^3/ul Red Blood Count 3.9610^6/ul 3.6110^6/ul Hemoglobin 12.6g/dl 11.2g/dl Hematocrit 36.7% 33.3% Mean Corpuscular Volume 92.7fl 92.2fl Mean Corpuscular Hemoglobin 31.8pg 31.0pg Mean Corpuscular Hemoglobin Concent 34.3g/dl 33.6g/dl Red Cell Distribution Width 12.1% 12.3% Platelet Count 12162^3/UL 42612^3/UL Mean Platelet Volume 9.1fl 9.3fl Neutrophils % 78.8% 58.6% Lymphocytes % 10.6% 21.6% Monocytes % 7.4% 12.5% Eosinophils % 1.0% 4.4% Basophils % 0.4% 0.3% Nucleated Red Blood Cells % 0.0/100WBC 0.0/100WBC Neutrophils # 5.710^3/ul 3.410^3/ul Lymphocytes # 0.810^3/ul 1.210^3/ul Monocytes # 0.510^3/ul 0.710^3/ul Eosinophils # 0.110^3/ul 0.310^3/ul Basophils # 0.010^3/ul 0.010^3/ul Nucleated Red Blood Cells # 0.010^3/ul 0.010^3/ul Sodium Level 137mmol/L Potassium Level 3.5mmol/L Chloride Level 101mmol/L Carbon Dioxide Level 26mmol/L Anion Gap 14 Blood Urea Nitrogen 8mg/dl Creatinine 0.59mg/dl Glucose Level 108mg/dl Calcium Level 8.8mg/dl Total Bilirubin 0.5mg/dl Direct Bilirubin 0.00mg/dl Indirect Bilirubin 0.5mg/dl Aspartate Amino Transf (AST/SGOT) 22IU/L Alanine Aminotransferase (ALT/SGPT) 29IU/L Alkaline Phosphatase 93IU/L Total Protein 7.4g/dl Albumin 4.1g/dl Globulin 3.30g/dl Albumin/Globulin Ratio 1.24 Current Medications Medications (Trade) Dose Ordered Sig/Bita Route PRN Reason Start Time Stop Time Status Last Admin Dose Admin Sodium Chloride 1,000 ml @ 1,000 mls/hr Q1H STAT IV 12/14/16 19:27 12/14/16 20:26 DC 12/14/16 19:59 Cefazolin Sodium (Ancef 1 Gm/50 ml (Pmx)) 50 ml @ 100 mls/hr ONCE IVPB 12/14/16 19:30 12/14/16 19:59 DC 12/14/16 19:59 Ondansetron HCl (Zofran Inj) 4 mg BRIDGE ORDER PRN IV NAUSEA AND/OR VOMITING 12/14/16 20:00 12/15/16 19:59 Acetaminophen 650 mg 650 mg ER BRIDGE PRN PO MILD PAIN/FEVER 12/14/16 20:00 12/15/16 19:59 Cefazolin Sodium/ Dextrose (Ancef 2 Gm/50 ml (Pmx)) 50 ml @ 100 mls/hr Q6 IVPB 12/15/16 00:00 12/15/16 00:23 DC 12/14/16 23:04 Ondansetron HCl (Zofran Inj) 4 mg Q6H PRN IV NAUSEA AND/OR VOMITING 12/14/16 22:00 Acetaminophen 650 mg 650 mg Q4H PRN PO PAIN AND OR ELEVATED TEMP 12/14/16 22:00 Lactated Ringer's (Lr) 1,000 ml @ 125 mls/hr Q8H IV 12/14/16 22:00 12/14/16 22:19 Clindamycin Phosphate 900 mg 900 mg Q8 ONCE IV 12/15/16 00:30 12/15/16 00:30 DC Gentamicin Sulfate 50 ml @ 104 mls/hr Q8H IVPB 12/15/16 01:00 12/15/16 08:35 DC 12/15/16 04:17 Clindamycin HCl/ Dextrose 50 ml @ 50 mls/hr Q8H IVPB 12/15/16 01:00 12/15/16 08:33 DC 12/15/16 03:14 Clindamycin HCl/ Dextrose 50 ml @ 50 mls/hr Q8 IVPB 12/15/16 14:00 Gentamicin Sulfate (Gentamicin) 50 ml @ 104 mls/hr Q8H IVPB 12/15/16 12:00 EMMANUEL GUTHRIE MD Dec 15, 2016 10:44
[2016-12-15] MEDS: GENTAMICIN 80 MG/NS (PMX) 50 ML IVPB SCH ×2 (11:42→21:40)
[2016-12-15] MEDS: CLINDAMYCIN 900 MG/D5W (PMX) 50 ML IVPB SCH ×2 (14:08→22:54)
[2016-12-15 20:05] VITALS: BP 110/74; RESP 18
[2016-12-16] MEDS: LACTATED RINGER'S 1,000 ML IV SCH ×2 (01:42→05:30)
[2016-12-16] MEDS: GENTAMICIN 80 MG/NS (PMX) 50 ML IVPB SCH (04:32)
[2016-12-16] MEDS: CLINDAMYCIN 900 MG/D5W (PMX) 50 ML IVPB SCH (05:42)
[2016-12-16 07:42] VITALS: BP 117/67; RESP 20
--- NOTE | 2016-12-16 10:30 | QN ---
Documentation Comment Afebrile vital signs are stable wbc 5700, minimal serosanguineous drainage from the wound, nurses specialist for wound care requested to see the patient, plan of possible discharge today discussed with the patient EMMANUEL GUTHRIE MD Dec 16, 2016 10:30
[2016-12-16] MEDS ORDERED: ACET500C5 PO (17:47)
[2016-12-16] MEDS ORDERED: CIPR500T4 PO (17:48)
[2016-12-16] MEDS ORDERED: SULF1TAB31 PO (17:48)
--- NOTE | 2016-12-19 09:15 | CONS ---
DATE OF ADMISSION: 12/14/2016 DATE OF CONSULTATION: 12/16/2016 TYPE OF CONSULTATION: Infectious Disease. REASON FOR CONSULTATION: Antibiotic management. HISTORY OF PRESENT ILLNESS: Ju Allen is a 26-year-old female patient of Dr. Ochoa wh o was admitted with wound infection at 1 week post-C section. Her past problems include: 1. at 40 weeks and 4 days, which occurred 1 week ago. Patient presented to [facility] with fever, wound drainage about 3 days ago, temperature of 101. She had purulent drainage from the right side of the wound. She was treated for 2 days at [facility] and then signed out a gainst medical advice and came to see Dr. Ochoa. She reports drainage. It has been only from the right third of the incision. She was started in the emergency room on Ancef 1 gram q.4h. She is n ot currently breast feeding, had trouble with milk production and stopped breast feeding. PAST MEDICAL HISTORY: Operations as outlined. FAMILY HISTORY: Noncontributory. SOCIAL HISTORY: She smokes. She does not drink or abuse drugs. ALLERGIES: NONE TO PENICILLIN, SULFA OR FOODS. MEDICATIONS: Per chart. REVIEW OF SYSTEMS: Noncontributory. PHYSICAL EXAMINATION: GENERAL: The patient is a well-developed, somewhat obese female who is alert, responsive, in no acu te distress. VITAL SIGNS: Stable. She is afebrile. SKIN: Without generalized rash. HEENT: Within normal limits. NECK: Supple. LYMPH NODES: None palpable. CHEST: Decreased breath sounds at the bases. HEART: Without murmur or gallop. ABDOMEN: Soft, nontender, without organosplenomegaly or masses. She has a Pfannenstiel incision re lated to recent with drainage from the right side of the incision. She has erythema aroun d the wound with some blanching. She has purulent drainage and minimal tenderness. EXTREMITIES: No cyanosis, clubbing, or edema. RECTAL AND GENITAL: Deferred. NEUROLOGIC: No focal neurological abnormality. LABORATORY DATA: White count is 7.3, H and H of 12.6 and 36.7, platelet count 321,000. BUN and cre atinine 8/0.59, glucose 103. MICROBIOLOGY: Urine cultures negative. Wound cultures negative. IMPRESSION AND PLAN: The patient was given clindamycin and gentamicin in the emergency room. Curre normanly, she does not seem to be on anything. We will continue her on clindamycin and gentamicin until her cultures come back. I will dictate my findings to Dr. Ochoa. Actually we are going to wait. ____ white count is 5700. She has minimal serosanguineous drainage from the wound. ____ follow up specialist requested to see the patient. Plan of possible discharge today, so will hold off on anti biotics for the time being. She may go home on oral antibiotics. I will dictate my findings to Dr. Ochoa. Dictated By: JUAN C HUMPHREY MD, JD/CINDY Conf#: [id number] DID#: [id number]
== END 2016-12-16 18:20 | disposition home health service (06) | DRG 776 ==
LOC: FTE 18:08 → MS2 19:44
PROVIDERS: ADMIT Obstetrics & Gynecology; ATTEND Obstetrics & Gynecology
DX: O86.0 Infection of obstetric surgical wound (principal); L03.311 Cellulitis of abdominal wall
CPT/HCPCS: 36415; 80053; 81001; 85025; 87070; 87081; 87086; 96374; 96376; J0690; J1580; J7030; J7120